=== PATIENT | male | born 1975 | race African-American/Black ===

== ENCOUNTER 2023-04-18 13:00 | Emergency (ER) | payer OTHER ==
[2023-04-18] MEDS ORDERED: carBAMazepine 200 MG TAB ONE (13:27)
[2023-04-18 13:42] LABS: Absolute Lymphocytes (CBC) 1.3 K/uL (0.7-4.9); Hematocrit 33.6 % (39.6-49.0); Lymphocytes % 47.8 % (15.3-44.8); MCV 97.7 fL (80-100); MPV 8.7 fL (7.6-11.3); RBC Red Blood Cell Count 3.44 M/uL (4.33-5.43)
[2023-04-18 13:49] LABS: Protime INR 1.18
[2023-04-18 13:56] LABS: Potassium 3.8 mEq/L (3.5-5.1)
[2023-04-18 14:02] LABS: Barbiturates NEGATIVE (NEGATIVE); Benzodiazepines NEGATIVE (NEGATIVE); Cocaine NEGATIVE (NEGATIVE); METHAMPHETAM NEGATIVE (NEGATIVE); Methadone NEGATIVE (NEGATIVE); Opiates NEGATIVE (NEGATIVE); Phencyclidine NEGATIVE (NEGATIVE); THC Cannibis NEGATIVE (NEGATIVE)
--- NOTE | 2023-04-18 14:06 | RAD REPORT ---
EXAM DESCRIPTION: CT - Head Brain Wo Cont - 04/18/2023 1:23 pm CLINICAL HISTORY: seizure, AMS COMPARISON: No comparisons TECHNIQUE: Noncontrast head CT images ad were obtained without IV contrast. Multiplanar reformats we re generated and reviewed. All CT scans are performed using dose optimization technique as appropriate and may include automated exposure control or mA/KV adjustment according to patient size. FINDINGS: No intracranial hemorrhage, mass, or edema. Midline structures are unremarkable. Normal ventricular caliber for age. Abdi-white matter differentiation is preserved, without evidence of acute infarct. No abnormal extra- axial fluid collections. Mastoid air cells and visualized portions of the paranasal sinuses are clear. No acute bony findings. IMPRESSION: No evidence of an acute intracranial process.
--- NOTE | 2023-04-18 15:39 | EDPHYS ---
Physician Documentation [facility] Name: Nile Miranda Age: 47 yrs Sex: Male : 1975 Arrival Date: 04/18/2023 Time: 13:00 Bed 4 Private MD: ED Physician Gt Brown HPI: 04/18 15:33 This 47 yrs old Black Male presents to ER via EMS with complaints of seizure, AMS. rn 15:33 The patient presents after having a single isolated seizure. Character of seizure(s): rn Motor activity: the motor activity is unknown, Incontinence: none, Circulation: the patient did not experience evidence of pulse disturbance. Seizure onset: today. Associated injury: The patient did not suffer any apparent associated injury. Current symptoms: confusion, headache. The patient has experienced similar episodes in the past. The patient has not recently seen a physician. Pt brought from senior care for seizure and AMS, has known seizure disorder, takes tegretol but has not been receiving his medication for some reason. Reports without meds has seizures about every 1-2 weeks. No known trauma. Pt acting funny so brought in. EMS got story of possible synthetic marijuana, but patient denies. . Historical: - Allergies: 13:12 Aspirin; ko1 - PMHx: 13:12 Seizure; ko1 - Immunization history:: Adult Immunizations unknown. - Social history:: Smoking status: Patient denies any tobacco usage or history of. - Family history:: not pertinent. - Hospitalizations: : No recent hospitalization is reported. ROS: 15:33 Constitutional: Negative for fever, chills, and weight loss, Eyes: Negative for injury, rn pain, redness, and discharge, Neck: Negative for injury, pain, and swelling, Cardiovascular: Negative for chest pain, palpitations, and edema, Respiratory: Negative for shortness of breath, cough, wheezing, and pleuritic chest pain, Abdomen/GI: Negative for abdominal pain, nausea, vomiting, diarrhea, and constipation, Back: Negative for injury and pain, MS/Extremity: Negative for injury and deformity, Skin: Negative for injury, rash, and discoloration, Neuro: Negative for numbness, tingling Exam: 15:33 Constitutional: This is a well developed, well nourished patient who is awake, alert, rn and in no acute distress. Head/Face: Normocephalic, atraumatic. Eyes: Pupils equal round and reactive to light, extra-ocular motions intact. Neck: No Meningismus. Cardiovascular: Regular rate and rhythm. No pulse deficits. Respiratory: No increased work of breathing, no retractions or nasal flaring. Abdomen/GI: Soft, non-tender MS/ Extremity: Pulses equal, no cyanosis. Neurovascular intact. Full, normal range of motion. Equal circumference. Neuro: Awake, seems post ictal with slow response, GCS 15, oriented to person, place, time, and situation. Cranial nerves II-XII grossly intact. Motor strength 5/5 in all extremities. Sensory grossly intact. Cerebellar exam normal. Vital Signs: 12:55 BP 115 / 77; Pulse 55; Resp 18; Temp 98.3; Pulse Ox 98% ; ko1 13:42 BP 119 / 86; Pulse 63; Resp 18; Pulse Ox 96% on R/A; ko1 15:15 BP 120 / 79; Pulse 60; Resp 18; Pulse Ox 100% on R/A; ko1 MDM: 13:08 Patient medically screened. rn 15:33 Differential diagnosis: seizure. Differential diagnosis: drug overdose, corporate associate attorney arrhythmia. Data reviewed: vital signs, nurses notes. Data reviewed: lab test result(s), radiologic studies, CT scan, and as a result, I will discharge patient. Counseling: I had a detailed discussion with the patient and/or guardian regarding: the historical points, exam findings, and any diagnostic results supporting the discharge/admit diagnosis, lab results, radiology results, the need for outpatient follow up, to return to the emergency department if symptoms worsen or persist or if there are any questions or concerns that arise at home. Response to treatment: the patient's symptoms have resolved after treatment, the patient's condition has returned to base line, the patient is now symptom free, and as a result, I will discharge patient. Special discussion: I discussed with the patient/guardian in detail that at this point there is no indication for admission to the hospital. It is understood, however, that if the symptoms persist or worsen the patient needs to return immediately for re-evaluation. Based on the history and exam findings, there is no indication for further emergent testing or inpatient evaluation. ED course: Pt back to baseline, given tegretol here, no further seizures, normal vitals, will dc home, patient smiling and thankful. Will dc with return precautions and instructions that needs to start his seizure meds again or this will continue to happen. 04/18 13:09 Order name: CBC with Diff; Complete Time: 14:47 rn 04/18 13:09 Order name: Basic Metabolic Panel; Complete Time: 14:47 rn 04/18 13:09 Order name: Protime (+inr); Complete Time: 14:47 rn 04/18 13:09 Order name: Ptt, Activated; Complete Time: 14:47 rn 04/18 13:09 Order name: Urine Drug Screen; Complete Time: 14:47 rn 04/18 13:09 Order name: CT Head Brain wo Cont; Complete Time: 14:47 rn 04/18 13:09 Order name: IV Start; Complete Time: 13:14 rn Administered Medications: 13:13 Drug: NS 0.9% IV 500 ml Route: IV; Rate: bolus; Site: right forearm; ko1 13:34 Drug: carBAMazepine PO 400 mg Route: PO; ko1 Disposition Summary: 04/18/23 15:39 Discharge Ordered Location: Home rn Problem: an ongoing problem rn Symptoms: have improved rn Condition: Stable rn Diagnosis - Epileptic seizures related to external causes, not intractable, without status rn epilepticus Followup: rn - With: Private Physician - When: As needed - Reason: Recheck today's complaints, Re-evaluation by your physician Discharge Instructions: - Discharge Summary Sheet rn - Epilepsy rn - Seizure, Adult rn Forms: - Medication Reconciliation Form rn - Thank You Letter rn - Antibiotic pediatric rn - Prescription Opioid Use rn Prescriptions: - Tegretol 200 mg Oral Tablet - take 1 tablet by ORAL route every 12 hours indefinitely; 120 tablet; Refills: rn 0, Product Selection Permitted Signatures: Dispatcher [employer] Gt Pretty MD MD rn Ada Serrano RN RN ko1
--- NOTE | 2023-04-18 15:39 | ER ---
Nurse's Notes [facility] Name: Nile Miranda Age: 47 yrs Sex: Male : 1975 Arrival Date: 04/18/2023 Time: 13:00 Bed 4 Private MD: Diagnosis: Epileptic seizures related to external causes, not intractable, without status epilepticus Presentation: 04/18 12:55 Chief complaint: EMS states: they were originally called for AMS, upon arrival they ko1 discovered he had a history of seizures and had not been receiving his medication. Coronavirus screen: At this time, the client does not indicate any symptoms associated with coronavirus-19. Ebola Screen: No symptoms or risks identified at this time. Initial Sepsis Screen: Does the patient meet any 2 criteria? No. Patient's initial sepsis screen is negative. Does the patient have a suspected source of infection? No. Patient's initial sepsis screen is negative. Risk Assessment: Do you want to hurt yourself or someone else? Patient reports no desire to harm self or others. Onset of symptoms was April 18, 2023. 12:55 Method Of Arrival: EMS: [facility] ko1 12:55 Acuity: JAMES 3 ko1 Triage Assessment: 13:12 General: Appears in no apparent distress. comfortable, Behavior is calm, cooperative, ko1 appropriate for age. Pain: Denies pain. Historical: - Allergies: 13:12 Aspirin; ko1 - PMHx: 13:12 Seizure; ko1 - Immunization history:: Adult Immunizations unknown. - Social history:: Smoking status: Patient denies any tobacco usage or history of. - Family history:: not pertinent. - Hospitalizations: : No recent hospitalization is reported. Screenin:15 [facility] ED Fall Risk Assessment (Adult) History of falling in the last 3 months, ko1 including since admission No falls in past 3 months (0 pts) Confusion or Disorientation No (0 pts) Intoxicated or Sedated No (0 pts) Impaired Gait No (0 pts) Mobility Assist Device Used No (0 pt) Altered Elimination No (0 pt) Score/Fall Risk Level 0 - 2 = Low Risk Oriented to surroundings, Maintained a safe environment, Educated pt \T\ family on fall prevention, incl call for assistance when getting out of bed, Assessed \T\ reinforced patient's understanding of fall precautions, Provided non-skid footwear, Hourly rounding (assess needs \T\ fall precautionary measures) done, Used ambulatory aids as needed (educated on \T\ assisted with), Used gait belt as appropriate. Abuse screen: Denies threats or abuse. Denies injuries from another. Nutritional screening: No deficits noted. Tuberculosis screening: No symptoms or risk factors identified. Assessment: 13:15 Neuro: Seizure activity reported prior to arrival. Patient is post-ictal at this time. ko1 Cardiovascular: No deficits noted. Respiratory: No deficits noted. GI: No deficits noted. : No deficits noted. EENT: No deficits noted. Derm: No deficits noted. Musculoskeletal: No deficits noted. 15:42 Reassessment: PT DC AMBULATORY WITH TDC. bp Vital Signs: 12:55 BP 115 / 77; Pulse 55; Resp 18; Temp 98.3; Pulse Ox 98% ; ko1 13:42 BP 119 / 86; Pulse 63; Resp 18; Pulse Ox 96% on R/A; ko1 15:15 BP 120 / 79; Pulse 60; Resp 18; Pulse Ox 100% on R/A; ko1 ED Course: 13:08 Patient arrived in ED. ko1 13:08 Gt Brown MD is Attending Physician. rn 13:09 Ada Serrano, SHIN is Primary Nurse. ko1 13:12 Triage completed. ko1 13:12 Arm band placed on right wrist. Patient placed in an exam room, on a stretcher, on ko1 shelter monitor, on pulse oximetry, Patient notified of wait time. 13:15 Patient has correct armband on for positive identification. Bed in low position. Call ko1 light in reach. Side rails up X2. Client placed on continuous cardiac and pulse oximetry monitoring. NIBP monitoring applied. engine monitor on. Warm blanket given. 13:15 No provider procedures requiring assistance completed. Maintain EMS IV. Dressing ko1 intact. Good blood return noted. Site clean \T\ dry. Gauge \T\ site: 18g right FA. IV is patent, is intact, Flushed right forearm with 5 ml normal saline. 13:25 CT Head Brain wo Cont In Process Unspecified. EDMS 13:34 Protime (+inr) Sent. ko1 13:34 Ptt, Activated Sent. ko1 13:34 Basic Metabolic Panel Sent. ko1 13:34 CBC with Diff Sent. ko1 13:42 Urine Drug Screen Sent. ko1 15:39 IV discontinued, intact, bleeding controlled, No redness/swelling at site. Pressure ko1 dressing applied. Administered Medications: 13:13 Drug: NS 0.9% IV 500 ml Route: IV; Rate: bolus; Site: right forearm; ko1 13:34 Drug: carBAMazepine PO 400 mg Route: PO; ko1 Medication: 13:15 VIS not applicable for this client. ko1 Outcome: 15:39 Discharge ordered by . rn 15:39 Discharged to Law Enforcement ko1 15:39 Condition: improved 15:39 Discharge instructions given to police, Instructed on discharge instructions, follow up and referral plans. medication usage, Demonstrated understanding of instructions, follow-up care, medications, Prescriptions given X 1. 15:43 Patient left the ED. ko1 Signatures: Dispatcher [employer] EDMS Gt Brown MD MD rn Peltier, Brian, RN RN bp Oliver, Kathy, RN RN ko1
[2023-04-18 16:18] VITALS: BP 120/79; O2SAT 100
== END 2023-04-18 15:43 | disposition home or self-care (01) ==
LOC: ER 13:00
DX: G40.509 Epileptic seizures related to external causes, not intractable, without status epilepticus (principal); Z88.6 Allergy status to analgesic agent
CPT/HCPCS: 36415; 70450; 80048; 80307; 85025; 85610; 85730; 99285